=== PATIENT | female | born 1970 | race American Indian/Alaskan Native ===

== ENCOUNTER 2017-07-02 11:01 | Outpatient (CLI) | payer BC ==
--- NOTE | 2017-07-02 11:55 | Mammography Report ---
BILATERAL DIGITAL SCREENING MAMMOGRAM with CAD: 07/02/17 11:01:00 CLINICAL: Routine screening. COMPARISON:06/07/16 FINDINGS: The breasts are heterogeneously dense, which may obscure small masses. No mass, architectural distortion or suspicious calcifications. IMPRESSION: No mammographic evidence of malignancy. BI-RADS CATEGORY: 1 - - Negative RECOMMENDATION: Routine mammographic screening in one year. COMMENT: Patient follow-up letters are generated by our [employer] application.
== END 2017-07-02 11:02 | disposition home or self-care (01) ==
LOC: MAMMO 11:01
PROVIDERS: ATTEND Physician Assistant
DX: Z12.31 Encounter for screening mammogram for malignant neoplasm of breast (principal)
CPT/HCPCS: 77067; G0202

== ENCOUNTER 2018-07-23 08:03 | Outpatient (CLI) | payer BC ==
--- NOTE | 2018-07-23 13:54 | Mammography Report ---
BILATERAL DIGITAL SCREENING MAMMOGRAM with CAD: 07/23/18 08:03:00 CLINICAL: Routine screening. COMPARISON:07/02/17 FINDINGS: The breasts are heterogeneously dense, which may obscure small masses. Left asymmetries require additional imaging.No architectural distortion or suspicious calcifications.The right breast is negative. IMPRESSION: Left asymmetries requiring further workup. BI-RADS CATEGORY: 0 -- Additional Imaging Evaluation Required RECOMMENDATION: Recall for left lateralmedial and spot magnification MLO and CC views and left breast ultrasound if needed. ACR BI-RADS MAMMOGRAPHIC CODES: 0 = Needs additional imaging evaluation; 1 = Negative; 2 = Benign; 3 = Probably benign; 4 = Suspicious; 5 = Malignant; 6 = Known biopsy-proven malignancy COMMENT: 1. Dense breast tissue, i.e., adenosis, fibrocystic changes, etc., may obscure an underlying neoplasm. 2. Approximately 10% of cancers are not detected with mammography. 3. A negative mammography report should not delay biopsy if a clinically suspicious mass is present. COMMENT: Patient follow-up letters are generated via our [employer] application.
== END 2018-07-23 08:04 | disposition home or self-care (01) ==
LOC: SPVWC 08:03
PROVIDERS: ATTEND Physician Assistant
DX: Z12.31 Encounter for screening mammogram for malignant neoplasm of breast (principal)
CPT/HCPCS: 77067

== ENCOUNTER 2019-08-25 15:38 | Outpatient (CLI) | payer BC ==
--- NOTE | 2019-08-26 11:55 | Mammography Report ---
DIGITAL SCREENING MAMMOGRAM WITH CAD, 08/25/2019 INDICATION: Routine screening mammography. TECHNIQUE: Digital bilateral 2D mammography was obtained in the craniocaudal and mediolateral obliq ue projections. This examination was interpreted with the benefit of Computer-Aided Detection analysi s. COMPARISON: 07/23/2018 and 07/02/2017 FINDINGS: Breast Density: The breasts are heterogeneously dense, which may obscure small masses. Right focal asymmetry with architectural distortion requires additional imaging. No suspicious calcif ications of the right breast. There is no evidence of dominant mass, suspicious calcifications or arc hitectural distortion in the left breast. IMPRESSION: Right focal asymmetry with architectural distortion requiring additional imaging. Recomme nd recall for right spot magnification views and right breast ultrasound if needed. Follow up recommendation: Special View: Mag Category 0: Incomplete. Needs additional imaging evaluation and/or prior mammograms for comparison. A "normal" or negative report should not discourage follow up or biopsy of a clinically significant f inding. A written summary of these findings will be mailed to the patient. The patient will be entered into a mammography reporting system which will generate a reminder letter for the patient's next appointmen t at the appropriate interval. The [employer] recommends yearly mammograms starting at age 40 and continuing as l ruddy as a woman is in good health. Breast MRI is recommended for women with an approximate 20-25% or greater lifetime risk of breast cancer, including women with a strong family history of breast or ova ron cancer or who have been treated for Hodgkin's disease. Signer Name: Herb Dejesus MD Signed: 08/26/2019 11:50 AM Workstation Name: [id number]
== END 2019-08-25 15:39 | disposition home or self-care (01) ==
LOC: SPVWC 15:38
PROVIDERS: ATTEND Physician Assistant
DX: Z12.31 Encounter for screening mammogram for malignant neoplasm of breast (principal)
CPT/HCPCS: 77067

== ENCOUNTER 2019-09-13 12:39 | Outpatient (CLI) | payer BC ==
--- NOTE | 2019-09-13 13:29 | Mammography Report ---
DIGITAL RIGHT DIAGNOSTIC MAMMOGRAM WITH CAD, WITHOUT TOMOSYNTHESIS 09/13/2019 INDICATION: ABNORMAL MAMMO. Recall to evaluate right asymmetries. TECHNIQUE: Digital right mammographic imaging was performed. Spot compression views were obtained. This examination was interpreted with the benefit of Computer-aided Detection analysis. COMPARISON: 08/25/2019 Breast Density: The breast is heterogeneously dense, which may obscure small masses. FINDINGS: Lateral and spot magnification MLO and CC views were performed. Satisfactory effacement of asymmetries on the spot images. The lateral view is negative. IMPRESSION: No mammographic evidence of malignancy. Follow up recommendation: Routine BI-RADS Category 1: Negative. A "normal" or negative report should not discourage follow up or biopsy of a clinically significant f inding. A written summary of these findings will be mailed to the patient. The patient will be entered into a mammography reporting system which will generate a reminder letter for the patient's next appointmen t at the appropriate interval. According to the [employer], yearly mammograms are recommended starting at age 40 and continuing as long as a woman is in good health. Breast MRI is recommended for women with an gume roximately 20-25% or greater lifetime risk of breast cancer, including women with a strong family his tory of breast or ovarian cancer and women who have been treated for Hodgkin's disease. Signer Name: Herb Dejesus MD Signed: 09/13/2019 1:25 PM Workstation Name: [id number]
== END 2019-09-13 12:40 | disposition home or self-care (01) ==
LOC: SPVWC 12:39
PROVIDERS: ATTEND Internal Medicine
DX: R92.8 Other abnormal and inconclusive findings on diagnostic imaging of breast (principal)